=== PATIENT | female | born 1955 | race Caucasian/White ===

== ENCOUNTER 2023-02-15 02:15 | Day surgery (SDC) | payer OTHER, SELFPAY ==
[2023-01-24 10:57] VITALS: BMI 29.1
--- NOTE | 2023-02-13 10:02 | SUR.PREOP ---
Patient called regarding upcoming procedure. Reviewed preop instructions, appointment times, and procedure prep.
[2023-02-15 07:55] VITALS: BP 147/85; PULSE 88; RESP 18; TEMP 36.1; O2SAT 98; BMI 29.2
[2023-02-15] MEDS: LACTATED RINGERS 1,000 ML 150 ML IV CONT (07:58)
--- NOTE | 2023-02-15 08:30 | P.PNAN_ITS ---
Anes - Initial Pre Proc Eval Procedure: Operation Date: 02/15/23 09:00 Proposed Procedures p Screening Colonoscopy - Robin Conrad MD Date/Time: 02/15/23 08:30 Surgeon: Robin Conrad MD Pre Op Diagnosis: neoplasm screening Patient Data Age: 67 Gender: F Height: 1.57 m Weight: 72.5 kg Last Vital Signs Temp 97 F L 02/15/23 07:55 Pulse 88 02/15/23 07:55 Resp 18 02/15/23 07:55 BP 147/85 H 02/15/23 07:55 Pulse Ox 98 02/15/23 07:55 O2 Del Method Room Air 02/15/23 07:55 Allergies Allergy/AdvReac Type Severity Reaction Status Date / Time Penicillins Allergy Intermediate Rash Verified 02/15/23 07:53 Home Medications Medication Instructions Recorded Confirmed Type anastrozole 1 mg tablet 1 mg PO DAILY 01/24/23 02/15/23 History calcium carb-mag ox-zinc gluc 1 tab-cap PO DAILY 01/24/23 02/15/23 History cholecalciferol (vitamin D3) 25 25 mcg PO DAILY 01/24/23 02/15/23 History mcg (1,000 unit) tablet (Vitamin D3) garlic 1,000 mg capsule 1,000 mg PO DAILY 01/24/23 02/15/23 History levothyroxine 75 mcg tablet 75 mcg PO DAILY 01/24/23 02/15/23 History meloxicam 15 mg tablet 15 mg PO DAILY 01/24/23 02/15/23 History rosuvastatin 10 mg tablet 10 mg PO DAILY 01/24/23 02/15/23 History Patient hx anesthesia problems: none Family hx anesthesia problems: none Results Review: All pre-operative results and documents have been reviewed as part of the pre- operative evaluation. [facility] Social History Social History Smoking status: Never smoker Alcohol intake: current Substance use: never Living arrangements: with family Spiritual care concerns: No Anes - Eval Final PreProcedure Day of Procedure 02/15/23 08:30 Patient weight: normal Heart: regular rate and rhythm Lungs: clear to auscultation Airway: Mallampati scale class II Neurological: alert and oriented Last oral intake: >/= 8 hours ASA classification: III Emergent: no Anesthetic plan: proceed Anesthesia type and monitoring: general GIVS and standard monitoring Results Review: All pre-operative results and documents have been reviewed as part of the pre- operative evaluation. Informed Consent: The patient's anesthetic plan and its attendant risks and benefits were discussed with the patient/family/POA. Questions were solicited and answers provided to the satisfaction of the patient/family/POA.
--- NOTE | 2023-02-15 08:35 | PM.HPGS ---
History of Present Illness History of Present Illness Consent: Risks, benefits, and alternatives have been discussed and questions answered. Patient agrees to proceed with procedure. Chief complaint: neoplasm screening Narrative: Nolvia Morgan is a 67 year old female here for first screening colonoscopy Review of Systems Constitutional: Constitutional: Denies headache(s) and Denies weakness Eyes: Eyes: Denies blurry vision ENT: Reports Normal hearing present, Denies headache(s) and Denies neck pain Cardiovascular: Cardiovascular: Denies chest pain and Denies dyspnea Respiratory: Respiratory: Denies dyspnea Gastrointestinal: Gastrointestinal: Reports no additional gastrointestinal complaints Genitourinary: Genitourinary: Denies dysuria Musculoskeletal: Musculoskeletal: Denies neck pain Integumentary/Breasts: Skin/Breast: Denies dry skin Neurologic: Reports Normal hearing present, Denies headache(s) and Denies weakness Psychiatric: Psychiatric: Denies anxiety Endocrine: Endocrine: Denies change in body appearance Hematologic/Lymphatic: Hematologic/Lymphatic: Denies easy bleeding Allergic/Immunologic: Allergic/Immunologic: Denies urticaria PMF Past Medical History Medical History (Updated 02/15/23 @ 08:36 by Robin Conrad MD) Colon cancer screening Social History Social History Smoking status: Never smoker Alcohol intake: current Substance use: never Living arrangements: with family Spiritual care concerns: No Meds Home Medications and Allergies Home Medications Medication Instructions Recorded Confirmed Type anastrozole 1 mg tablet 1 mg PO DAILY 01/24/23 02/15/23 History calcium carb-mag ox-zinc gluc 1 tab-cap PO DAILY 01/24/23 02/15/23 History cholecalciferol (vitamin D3) 25 25 mcg PO DAILY 01/24/23 02/15/23 History mcg (1,000 unit) tablet (Vitamin D3) garlic 1,000 mg capsule 1,000 mg PO DAILY 01/24/23 02/15/23 History levothyroxine 75 mcg tablet 75 mcg PO DAILY 01/24/23 02/15/23 History meloxicam 15 mg tablet 15 mg PO DAILY 01/24/23 02/15/23 History rosuvastatin 10 mg tablet 10 mg PO DAILY 01/24/23 02/15/23 History Allergies Allergy/AdvReac Type Severity Reaction Status Date / Time Penicillins Allergy Intermediate Rash Verified 02/15/23 07:53 Vital Signs Vital Signs - 24 hr 02/15/23 07:55 Temperature 97 F L Pulse Rate 88 Respiratory Rate 18 Blood Pressure 147/85 H Pulse Oximetry 98 Oxygen Delivery Room Air Exam Const: General: comfortable and no acute distress HENMT: Face/Nose/Sinus: Normal nares present Eyes: General: appearance normal, both eyes and all related structures Neck: Neck: no JVD Resp: Auscultation: clear to auscultation bilaterally Cardio: Rate: regular rate Rhythm: regular rhythm GI: Inspection: non-distended GI Palp: Yes Soft to palpation Skin: General skin exam: normal color Neuro: General: gait normal Speech: normal speech Extrem: General: normal to inspection Psych: Mental Status: mental status grossly normal Assessment and Plan Assessment and plan (1) Colon cancer screening: Code(s): Z12.11 - Encounter for screening for malignant neoplasm of colon Status: Acute Assessment and Plan: colonoscopy
[2023-02-15 08:56] VITALS: BP 113/66; PULSE 70; RESP 22; O2SAT 97
[2023-02-15 09:06] VITALS: BP 131/81; PULSE 68; RESP 14; O2SAT 97
[2023-02-15 09:16] VITALS: BP 132/80; PULSE 62; RESP 16; O2SAT 98
== END 2023-02-15 09:24 | disposition home or self-care (01) ==
PROVIDERS: PCP Family Medicine; Visit Provider Internal Medicine Gastroenterology
PROC: 0DJD8ZZ Inspection of Lower Intestinal Tract, Via Natural or Artificial Opening Endoscopic (ICD-10-PCS; CPT 45378; principal; 2023-02-15 09:00)
DX: Z12.11 Encounter for screening for malignant neoplasm of colon (principal); K64.8 Other hemorrhoids; K57.30 Diverticulosis of large intestine without perforation or abscess without bleeding
CPT/HCPCS: 45378; J2704; J7120